=== PATIENT | female | born 1975 | race African-American/Black ===

== ENCOUNTER 2025-01-06 17:24 | Emergency (ER) | payer MEDICAID, OTHER ==
[~2025-01-06] VITALS: Ht 170.2 cm; Wt 98.3 kg
[2025-01-06] MEDS: LORazepam 0.5 MG TAB PO ONE (18:12)
[2025-01-06] MEDS: MECLIZINE HCL 25 MG TAB PO ONE (18:12)
[2025-01-06 18:38] LABS: Basophils # (auto) 0 10 ^3/uL (0-0.2); Basophils % (auto) 0.2 % (0.0-2.0); Eosinophils # (auto) 0.1 10 ^3/uL (0-0.8); Eosinophils % (auto) 1.5 % (0.0-7.0); Hematocrit 43.8 % (36.0-46.0); Hemoglobin 14.8 g/dL (12.2-16.2); Lymphocytes # (auto) 1.9 10 ^3/uL (0.4-5.4); Lymphocytes % (auto) 30.2 % (10.0-50.0); Mean Corpuscular Hgb Conc. 33.7 g/dL (32.0-36.0); Mean Corpuscular Volume 88.8 fL (80.0-100.0); Monocytes # (auto) 0.3 10 ^3/uL (0-1.3); Monocytes % (auto) 5.2 % (0.0-12.0); Neutrophils % (auto) 62.9 % (37.0-80.0); Nucleated Red Blood Cells % 0.2 %; Platelet Count (auto) 177 10^3/uL (140-450); Red Blood Cells 4.93 10^6/uL (4.0-5.20); Red Cell Distribution Width 13.1 % (11.8-14.3); White Blood Cell 6.4 10^3/uL (4.4-10.8)
[2025-01-06 18:58] LABS: Alanine Aminotransferase 23 U/L (7-40); Anion Gap 9 (5-15); Aspartate Aminotransferase 22 U/L (13-40); BUN/Creatinine Ratio 8.3 (10.0-20.0); Carbon Dioxide 25 mmol/L (20-31); Chloride 105 mmol/L (98-107); Glucose 101 mg/dL (74-106); Potassium 4.1 mmol/L (3.5-5.1); Sodium 139 mmol/L (136-145)
[2025-01-06 19:01] LABS: Albumin 4.9 g/dL (3.2-4.8); Alkaline Phosphatase 116 U/L (46-116); Bilirubin, Total 1.4 mg/dL (0.2-1.0); Blood Urea Nitrogen 9 mg/dL (9-23); Calcium 10.6 mg/dL (8.7-10.4)
--- NOTE | 2025-01-06 20:27 | DVH ---
CHEST RADIOGRAPH Indication: dizzy, LUE numb Technique: Single frontal view of the chest was obtained COMPARISON: None FINDINGS: Lines and Tubes: None Lungs: Clear Pleura: No effusion. No pneumothorax. Cardiomediastinal contours: Unremarkable IMPRESSION: No abnormality.
[2025-01-06] MEDS: SODIUM CHLORIDE 0.9% 1,000 ML IV ONE (20:30)
--- NOTE | 2025-01-06 20:31 | ED.PDOC ---
History of Present Illness HPI Comments 49-year-old female with a history of dyslipidemia brought in by self complaining of dizziness, described as lightheadedness and the sensation as if she is going to pass out, intermittently for the last 6 days. The initial episode was 6 days ago and occurred while she was ambulating. She denies syncope, in the episode spontaneously resolved after a few sec. today she had a recurrent episode while driving at around 11:00 a.m.. She states she developed left-sided chest pain and left upper extremity numbness, so decided to come to the hospital. On a rrival to the ED, she is complaining of chest pain, does feel lightheaded, and states her left arm feels numb. She denies any weakness or vision changes. She denies shortness of breath. Accu-Chek was 71 at triage. 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 face symmetric.) Neck: Full Range of Motion, Non-Tender, Normal Inspection, Supple Respiratory: Lungs Clear, No Accessory Muscle Use, No Respiratory Distress, Normal Breath Sounds Cardiovascular: No Edema, No JVD, Regular Rate/Rhythm Breast Exam: Deferred Gastrointestinal: Non Tender, Soft Genitalia: Deferred Pelvic: Deferred Rectal: Deferred Extremities: Normal inspection, Normal range of motion, Non-tender, No pedal edema Neurologic: Alert (Oriented x4), Normal Affect, Normal Mood, Other (Ambulatory) Cerebellar Function: NOT DONE Reflexes: NOT DONE Skin: Dry, Normal Color, Warm Lymphatic: NOT DONE Was a procedure done? Was a procedure done?: No EKG EKG : Comments Sinus rhythm, rate 98, normal intervals, normal axis, normal QRS, nonspecific T change. Differential Dx Considerations may include: Anxiety, ACS, [place], arrhythmia, PE, orthostasis, paresthesias, chest wall pain, electrolyte imbalance, hypovolemia, CVA, TIA, intracranial mass lesion, among others among others X-Ray, Labs, Meds, VS Vital Signs Date Time Temp Pulse Resp B/P (MAP) Pulse Ox O2 Delivery O2 Flow Rate FiO2 01/06/25 17:38 98.0 92 20 149/86 (107) 100 98.0 01/06/25 17:37 98 Lab Test 01/06/25 20:15 01/06/25 20:03 01/06/25 18:25 01/06/25 17:33 Range/Units Urine Color Colorless Yellow Urine Clarity Clear Clear Urine pH 7.0 5.0-9.0 Urine Specific [place] 1.005 1.001-1.035 Urine Protein Negative Negative Urine Ketones Negative Negative Urine Blood 1+ H Negative /uL Urine Nitrite Negative Negative Urine Bilirubin Negative Negative Urine Urobilinogen Normal Negative mg/dL Urine Leukocyte Esterase Negative Negative /uL Urine RBC 1 0 - 4 /hpf Urine Microscopic WBC 7 H 0-5 /HPF Urine Squamous Epithelial Cells Few <5 /hpf Urine Bacteria Many H None Seen /hpf Urine Glucose Normal Normal mg/dL Troponin I High Sensitivity < 3 L < 3 L </=34 ng/L White Blood Count 6.4 4.4-10.8 10^3/uL Red Blood Count 4.93 4.0-5.20 10^6/uL Hemoglobin 14.8 12.2-16.2 g/dL Hematocrit 43.8 36.0-46.0 % Mean Corpuscular Volume 88.8 80.0-100.0 fL Mean Corpuscular Hemoglobin 30.0 28.0-32.0 pg Mean Corpuscular Hemoglobin Concent 33.7 32.0-36.0 g/dL Red Cell Distribution Width 13.1 11.8-14.3 % Platelet Count 177 140-450 10^3/uL Mean Platelet Volume 7.7 6.9-10.8 fL Neutrophils (%) (Auto) 62.9 37.0-80.0 % Lymphocytes (%) (Auto) 30.2 10.0-50.0 % Monocytes (%) (Auto) 5.2 0.0-12.0 % Eosinophils (%) (Auto) 1.5 0.0-7.0 % Basophils (%) (Auto) 0.2 0.0-2.0 % Neutrophils # (Auto) 4.0 1.6-8.6 10 ^3/uL Lymphocytes # (Auto) 1.9 0.4-5.4 10 ^3/uL Monocytes # (Auto) 0.3 0-1.3 10 ^3/uL Eosinophils # (Auto) 0.1 0-0.8 10 ^3/uL Basophils # (Auto) 0 0-0.2 10 ^3/uL Nucleated Red Blood Cells 0.2 % Sodium Level 139 136-145 mmol/L Potassium Level 4.1 3.5-5.1 mmol/L Chloride Level 105 98-107 mmol/L Carbon Dioxide Level 25 20-31 mmol/L Anion Gap 9 5-15 Blood Urea Nitrogen 9 9-23 mg/dL Creatinine 1.08 H 0.550-1.02 mg/dL Glomerular Filtration Rate Calc 63 >90 mL/min BUN/Creatinine Ratio 8.3 L 10.0-20.0 Serum Glucose 101 74-106 mg/dL Calcium Level 10.6 H 8.7-10.4 mg/dL Total Bilirubin 1.4 H 0.2-1.0 mg/dL Aspartate Amino Transferase (AST) 22 13-40 U/L Alanine Aminotransferase (ALT) 23 7-40 U/L Alkaline Phosphatase 116 46-116 U/L B-Type Natriuretic Peptide 12.41 0-100 pg/mL Total Protein 8.0 5.7-8.2 g/dL Albumin 4.9 H 3.2-4.8 g/dL Beta HCG, Quantitative 0.9 L 1.5-4.2 mIU/mL POC Glucose 71 70-106 mg/dl Current Medications Medications (Trade) Dose Ordered Sig/Amanda Route Start Time Stop Time Status Last Admin Meclizine HCl (Antivert Tablet) 50 mg ONCE ONCE PO 01/06/25 18:00 01/06/25 18:01 DC 01/06/25 18:12 Lorazepam (Ativan Tablet) 0.5 mg ONCE ONCE PO 01/06/25 18:00 01/06/25 18:01 DC 01/06/25 18:12 PROCEDURE(s): HWOCT - HEAD WITHOUT CONTRAST REASON: dizzy ORDER NUMBER(s): [id number], ACCESSION NUMBER(s): [id number] CT HEAD WITHOUT CONTRAST INDICATION: dizzy COMPARISON: None TECHNIQUE: CT of the head without intravenous contrast. RADIATION DOSE: CTDIvol: 53.9 mGy, DLP: 756.26 mGy*cm FINDINGS: There is no evidence of intracranial hemorrhage, infarct, extra-axial collection, mass effect, midline shift, herniation or hydrocephalus .The ventricles, sulci and cisterns are normal. The gonzalez-white differentiation is normal. Visualized paranasal sinuses and mastoid air cells are clear. Soft tissues and osseous structures are unremarkable. IMPRESSION: No intracranial abnormality identified. EDURE(s): CXRP - CHEST PORTABLE REASON: dizzy, LUE numb ORDER NUMBER(s): [id number], ACCESSION NUMBER(s): [id number] CHEST RADIOGRAPH Indication: dizzy, LUE numb Technique: Single frontal view of the chest was obtained COMPARISON: None FINDINGS: Lines and Tubes: None Lungs: Clear Pleura: No effusion. No pneumothorax. Cardiomediastinal contours: Unremarkable IMPRESSION: No abnormality. ATED BY: JILLIAN GUEVARA MD X-Ray, Labs, Meds, VS Comment 49-year-old female with a history of dyslipidemia complaining of lightheadedness and chest pain associated with left upper extremity numbness Vitals remarkable for BP 149/86 Exam unremarkable Rhythm strip independently interpreted by me: Sinus rhythm, rate 98, no ectopy. CT head unremarkable Chest x-ray unremarkable CBC unremarkable, CMP remarkable for creatinine 108, normal glucose at 1:01 a.m., calcium 10.6, BNP and troponin negative , UA abnormal indicating possible UTI Patient treated with the following in the ED: Meclizine 50 mg p.o., Ativan 0.5 mg p.o., 1 L 0.9 normal saline IV bolus, Rocephin 1 g IV On re-evaluation, patient is alert, ambulatory with no focal neurologic deficit. She is asymptomatic. Hospitalization was considered, however patient had rapid improvement of symp toms with treatment in the ED, and I no longer feel hospitalization is necessary. Score is 3, and PERC criteria are satisfied. Patient now appears stable for discharge with close outpatient follow-up with her primary physician. Rx Keflex Time of 1ST Reevaluation: 20:29 Reevaluation 1ST: Improved Patient Education/Counseling: Diagnosis, Treatment, Need For Follow Up Family Education/Counseling: No Family Present Departure 1 Departure Time of Disposition: 20:30 Impression: Primary Impression: Chest pain with low risk for cardiac etiology Additional Impression: Dizziness Disposition: 01 HOME / SELF CARE / HOMELESS Condition: Stable Additional Instructions: Your blood tests, including screening tests for heart attack and heart failure, were unremarkable. Your urine test was abnormal, indicating a possible urinary tract infection. Your EKG was normal. Your head CT and chest x-ray were unremarkable. I have prescribed antibiotics for your urinary tract infection. Follow-up with your primary doctor in 1-2 days for referral to a roller leveler for further evaluation of your chest pain. Return to ER for persistent or w orsening symptoms. e-Prescriptions Cephalexin Monohydrate (Cephalexin) 500 Mg Tab 1 TAB PO QID for 10 Days, #40 TAB Prov: JOSE TANNER MD 01/06/25 Discharged With: Self Critical Care Note Critical Care Time?: No Stability Stability form required: No Heart Score Heart Score: Heart Score Response (Comments) Value History Slightly Suspicious 0 EKG Repolarization Disturb 1 Age 45-64 1 Risk Factors 1 or 2 risk factors 1 Troponin Normal limit 0 Total 3 JOSE TANNER MD January 06, 2025 20:31
[2025-01-06 20:41] LABS: Urine Bacteria MANY /hpf (None Seen); Urine Blood 1+ /uL (Negative); Urine Clarity Clear (Clear); Urine Color Colorless (Yellow); Urine Protein, UAD Negative (Negative); Urine Specific Gravity 1.005 (1.001-1.035); Urine Squamous Epithelial Cell FEW /hpf (<5); Urine Urobilinogen Normal (Negative); Urine WBC 7 /HPF (0-5)
--- NOTE | 2025-01-06 20:47 | DVH ---
CT HEAD WITHOUT CONTRAST INDICATION: dizzy COMPARISON: None TECHNIQUE: CT of the head without intravenous contrast. RADIATION DOSE: CTDIvol: 53.9 mGy, DLP: 756.26 mGy*cm FINDINGS: There is no evidence of intracranial hemorrhage, infarct, extra-axial collection, mass effect, midli ne shift, herniation or hydrocephalus .The ventricles, sulci and cisterns are normal. The gonzalez-white differentiation is normal. Visualized paranasal sinuses and mastoid air cells are clear. Soft tissues and osseous structures are unremarkable. IMPRESSION: No intracranial abnormality identified.
[2025-01-06] MEDS ORDERED: CEPH500T PO (20:54)
[2025-01-06 21:59] VITALS: BP 117/83; TEMP 98.9
[2025-01-06 23:05] VITALS: PULSE 92; RESP 16; O2SAT 100
--- NOTE | 2025-01-07 13:32 | ECG ---
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
--- NOTE | 2025-01-11 14:36 | ECG ---
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
== END 2025-01-06 23:11 | disposition home or self-care (01) ==
LOC: ER 17:24
DX: R42 Dizziness and giddiness (principal); R07.89 Other chest pain; R20.0 Anesthesia of skin; E78.5 Hyperlipidemia, unspecified; Z79.899 Other long term (current) drug therapy; Z88.5 Allergy status to narcotic agent
CPT/HCPCS: 36415; 70450; 71045; 80053; 81001; 82947; 83880; 84484; 84702; 85025; 93005; 99285; J8597; 82962